=== PATIENT | female | born 1975 | race African-American/Black ===

== ENCOUNTER 2017-05-06 08:55 | Outpatient (CLI) | payer OTHER | END 2017-05-06 11:00 | disposition home or self-care (01) | LOC: MAMMO 08:55 | DX: Z12.31 Encounter for screening mammogram for malignant neoplasm of breast (principal) ==

== ENCOUNTER 2021-06-06 09:15 | Outpatient (CLI) | payer OTHER | END 2021-06-06 20:27 | disposition home or self-care (01) | LOC: MAMMO 09:15 | PROVIDERS: ATTEND Internal Medicine | DX: Z12.31 Encounter for screening mammogram for malignant neoplasm of breast (principal) ==